=== PATIENT | male | born 1975 | race African-American/Black ===

== ENCOUNTER 2017-06-14 10:33 | Emergency (ER) | payer OTHER ==
[2017-06-14 10:43] VITALS: BP 141/64; PULSE 67; TEMP 98.2; BMI 32.2
[2017-06-14] MEDS ORDERED: ACETAMINOPHEN 1000 MG/100 ML VIAL (NON FORMULARY) IVPB ONE (11:37)
--- NOTE | 2017-06-14 11:44 | PDOC ---
History of Present Illness - General Chief Complaint: Pain Stated Complaint: SINUS PAIN Time Seen by Provider: 06/14/17 11:29 History Source: Patient Exam Limitations: No Limitations - History of Present Illness Initial Comments: 06/14/17 11:39 42 yr male with c/o headache for 5 days getting worse with bilaterally neck pain. Pt denies fever or chills states he is taking Levaquin for sinus infection dx on Sunday pt denies sinus drainage, denies sinus pressure, no sneezing, no ear pain or sore throat. Pt states his 5 yr old at home with ear infection. Pt has history of asthma, well controlled. Past History - Past Medical History Allergies/Adverse Reactions: Allergies Allergy/AdvReac Type Severity Reaction Status Date / Time No Known Drug Allergies Allergy Verified 06/14/17 10:43 Home Medications: Ambulatory Orders Cetirizine HCl 10 mg PO ASDIR 06/14/17 Diazepam [Valium] 5 mg PO Q8H PRN #15 tablet MDD 15mg 06/14/17 Levofloxacin [Levaquin -] 500 mg PO DAILY 06/14/17 Methocarbamol 500 mg PO 06/14/17 Naproxen [Naprosyn -] 500 mg PO BID PRN #14 tablet 06/14/17 Anemia: (questionable high iron level in blood) Asthma: Yes (DX 2011-STABLE NO MEDS) Cancer: No Cardiac Disorders: Yes (tachycardia, no meds) CVA: No COPD: No CHF: No Dementia: No 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) GI Disorders: Yes (GERD) Disorders: No HTN: No Hypercholesterolemia: Yes (DX 2009-NO MEDS) Liver Disease: No Seizures: No Thyroid Disease: No - Surgical History Abdominal Surgery: Yes (HIATIAL HERNIA REPAIR-1998,LIVER BIOPSY) Appendectomy: No Cardiac Surgery: No Cholecystectomy: No Lung Surgery: No Neurologic Surgery: No Orthopedic Surgery: Yes (L SHOULDER ARTHROSCOPY-2009) - Immunization History Immunization Up to Date: Yes - Psycho/Social/Smoking Cessation Hx Anxiety: No Suicidal Ideation: No Smoking History: Never smoked Have you smoked in the past 12 months: No Information on smoking cessation initiated: No Hx Alcohol Use: No Drug/Substance Use Hx: No Substance Use Type: None Hx Substance Use Treatment: No Review of Systems - Review of Systems Able to Perform ROS?: Yes Is the patient limited German proficient: No Constitutional: No: Symptoms Reported HEENTM: Yes: See HPI Musculoskeletal: Yes: Symptoms Reported, Neck Pain Neurological: Yes: Symptoms reported, Headache *Physical Exam - Vital Signs Last Vital Signs Temp Pulse Resp BP Pulse Ox 98.2 F 67 17 141/64 100 06/14/17 10:42 06/14/17 10:42 06/14/17 10:42 06/14/17 10:42 06/14/17 10:42 - Physical Exam General Appearance: Yes: Nourished, Appropriately Dressed HEENT: positive: EOMI, SCOTT. negative: Nasal Congestion, Sinus Tenderness Neck: positive: Supple, Tender lateral. negative: Lymphadenopathy (R), Lymphadenopathy (L), Rigidity, Tender midline Respiratory/Chest: positive: Lungs Clear, Normal Breath Sounds Cardiovascular: positive: Regular Rhythm, Regular Rate Musculoskeletal: positive: Normal Inspection Extremity: positive: Normal Capillary Refill, Normal Inspection, Normal Range of Motion Integumentary: positive: Normal Color, Dry, Warm Neurologic: positive: software team leader II-XII NML intact, Fully Oriented, Alert, Normal Mood/ Affect, Normal Response ED Treatment Course - LABORATORY CBC & Chemistry Diagram: 06/14/17 11:50 06/14/17 11:50 - RADIOLOGY Radiology Studies Ordered: Category Date Time Status HEAD CT WITHOUT CONTRAST [CT] Stat CT Scan 06/14/17 11:[address] W/O CONTRAST [CT] Stat CT Scan 06/14/17 11:36 Ordered Medical Decision Making - Medical Decision Making 06/14/17 11:47 cc: headache for 5 days no vision change no photophobia pain to lateral neck worse with movement and to touch pt denies fever or chills, taking Levaquin day 3 for sinus infection pt states he has no sinus drainage or tenderness, will get head and sinus CT check labs IVF 06/14/17 15:06 pt feels much better after meds will dc home on valium and naprosyn dc inst explained, pt is satisfied with the care and all questions asked and answered *DC/Admit/Observation/Transfer Diagnosis at time of Disposition: Muscle spasm - Discharge Dispostion Disposition: HOME Condition at time of disposition: Good - Prescriptions Prescriptions: Naproxen [Naprosyn -] 500 mg PO BID PRN #14 tablet PRN Reason: pain Diazepam [Valium] 5 mg PO Q8H PRN #15 tablet MDD 15mg PRN Reason: Muscle Spasms - Referrals Referrals: Carole Crowell MD [Primary Care Provider] - Wilian Granados MD [Staff Physician] - - Patient Instructions Additional Instructions: STOP taking levaquin and Robaxin (muscle relaxant) start taking valium (do not drive, operate machinery or drink alcohol) take with naprosyn for pain and inflamation apply heating pad, warm compresses to the area of pain, back of your neck follow with the orthopedist if symptoms worsen or persist - Post Discharge Activity Work/School Note: Back to Work
[2017-06-14] MEDS ORDERED: ONDANSETRON 4 MG/2 ML VIAL IVPB ONE (11:47)
[2017-06-14] MEDS ORDERED: SODIUM CHLORIDE 0.9% 500 ML INFUS.BAG IV ONE (11:48)
[2017-06-14 11:57] LABS: EOSINOPHIL 0.8 % (0-4.5); MCH 25.5 pg (25.7-33.7); MCHC 31.8 g/dl (32.0-35.9); MEAN CELL VOLUME 80.3 fl (80-96); PLATELET COUNT 274 K/MM3 (134-434); RDW 15.1 % (11.9-15.9); WHITE BLOOD COUNT 7.3 K/mm3 (4.0-10.0)
[2017-06-14] MEDS ORDERED: ACETAMINOPHEN INJECTION 100 ML IVPB ONE (12:01)
[2017-06-14] MEDS ORDERED: ONDANSETRON 4 MG/2 ML VIAL ONE ×2 (12:01→12:07)
[2017-06-14 12:24] LABS: ALBUMIN 4.1 g/dl (3.4-5.0); ALK PHOS 62 U/L (45-117); ANION GAP 6 (8-16); BILIRUBIN,TOTAL 0.5 mg/dL (0.2-1.0); CALCIUM 9.2 mg/dL (8.5-10.1); CO2 31 mmol/L (21-32); CREATININE 1.3 mg/dL (0.7-1.3); GLUCOSE,RANDOM 100 mg/dL (74-106); SGPT/ALT 85 U/L (12-78); TOT PROT 7.5 g/dl (6.4-8.2)
[2017-06-14 12:26] LABS: SGOT/AST 34 U/L (15-37)
== END 2017-06-14 14:28 | disposition home or self-care (01) ==
LOC: JERFT 10:33
PROC: 3E033NZ Introduction of Analgesics, Hypnotics, Sedatives into Peripheral Vein, Percutaneous Approach (ICD-10-PCS; principal; 2017-06-14)
PROC: 3E033GC Introduction of Other Therapeutic Substance into Peripheral Vein, Percutaneous Approach (ICD-10-PCS; 2017-06-14)
PROC: 3E0337Z Introduction of Electrolytic and Water Balance Substance into Peripheral Vein, Percutaneous Approach (ICD-10-PCS; 2017-06-14)
DX: M62.838 Other muscle spasm (principal); J45.909 Unspecified asthma, uncomplicated; K21.9 Gastro-esophageal reflux disease without esophagitis; E78.00 Pure hypercholesterolemia, unspecified
CPT/HCPCS: 36415; 70450-TC; 70486-TC; 80053; 85025; 99281-25

== ENCOUNTER 2020-10-22 10:15 | Day surgery (SDC) | payer OTHER ==
[2020-10-20 13:07] VITALS: BMI 34.2
[2020-10-22] MEDS ORDERED: PROPOFOL 20 ML ONE ×3 (11:53)
[2020-10-22] MEDS ORDERED: LIDOCAINE HCL/PF 2% SDV 5ML VIAL ONE (11:55)
[2020-10-22 13:27] VITALS: TEMP 98
[2020-10-22 13:35] VITALS: BP 130/78; PULSE 66
== END 2020-10-22 13:35 | disposition home or self-care (01) ==
LOC: FASU-ENDO 10:15
PROVIDERS: ATTEND Internal Medicine Gastroenterology
PROC: 0DB68ZX Excision of Stomach, Via Natural or Artificial Opening Endoscopic, Diagnostic (ICD-10-PCS; 2020-10-22)
PROC: 0DB48ZX Excision of Esophagogastric Junction, Via Natural or Artificial Opening Endoscopic, Diagnostic (ICD-10-PCS; 2020-10-22)
PROC: 0DB98ZX Excision of Duodenum, Via Natural or Artificial Opening Endoscopic, Diagnostic (ICD-10-PCS; principal; 2020-10-22 12:03)
DX: R10.13 Epigastric pain (principal)
CPT/HCPCS: 88305-TC; 88342-TC

== ENCOUNTER 2020-11-23 07:37 | Day surgery (SDC) | payer OTHER ==
[2020-11-18 11:25] VITALS: BMI 34.2
[2020-11-23 08:21] VITALS: TEMP 98.3
[2020-11-23] MEDS ORDERED: PROPOFOL 20 ML ONE ×4 (09:13)
[2020-11-23] MEDS ORDERED: LIDOCAINE HCL/PF 2% SDV 5ML VIAL ONE (09:15)
[2020-11-23 10:28] VITALS: BP 110/61; PULSE 77
== END 2020-11-23 10:30 | disposition home or self-care (01) ==
LOC: FASU-ENDO 07:37
PROVIDERS: ATTEND Internal Medicine Gastroenterology
PROC: 0DJD8ZZ Inspection of Lower Intestinal Tract, Via Natural or Artificial Opening Endoscopic (ICD-10-PCS; principal; 2020-11-23 09:32)
DX: Z12.11 Encounter for screening for malignant neoplasm of colon (principal); K64.8 Other hemorrhoids
CPT/HCPCS: 82962

== ENCOUNTER 2021-05-13 13:50 | Emergency (ER) | payer OTHER ==
[2021-05-13 14:25] VITALS: BMI 33.9
[2021-05-13 17:07] LABS: BASO % 0.9 % (0-2.0); EOS % 1.3 % (0-4.5); HEMATOCRIT 46.3 % (35.4-49); LYMPH % 46.5 % (8-40); MCH 25.6 pg (25.7-33.7); MCHC 32.4 g/dl (32.0-35.9); MEAN CELL VOLUME 79.2 fl (80-96); MEAN PLT VOLUME 7.8 fl (7.5-11.1); MONO % 9.6 % (3.8-10.2); NEUT % 41.7 % (42.8-82.8); PLATELET COUNT 280 10^3/uL (134-434); RBC 5.84 M/mm3 (4.00-5.60); RDW 15.1 % (11.9-15.9); WHITE BLOOD COUNT 7.3 K/mm3 (4.0-10.0)
[2021-05-13 17:07] LABS: PH,URINE 5.5 (5.0-8.0); URINE APPEARANCE CLEAR; URINE BILIRUBIN NEGATIVE (NEGATIVE); URINE COLOR YELLOW; URINE GLUCOSE (UA) NEGATIVE (NEGATIVE); URINE KETONE NEGATIVE (NEGATIVE); URINE LEUK ESTERASE NEGATIVE (NEGATIVE); URINE NITRITE NEGATIVE (NEGATIVE); URINE PROTEIN NEGATIVE (NEGATIVE); URINE UROBILINOGEN 0.2 mg/dL (0.2-1.0)
[2021-05-13 17:26] LABS: CALCIUM 8.6 mg/dL (8.5-10.1)
[2021-05-13 17:27] LABS: BLOOD UREA NITROGEN 12.5 mg/dL (7-18)
[2021-05-13 17:30] LABS: CREATININE 1.4 mg/dL (0.55-1.3)
[2021-05-13 17:31] LABS: BILIRUBIN,TOTAL 0.4 mg/dL (0.2-1); TOT PROT 7.2 g/dl (6.4-8.2)
[2021-05-13 18:38] VITALS: TEMP 98.6
[2021-05-13 19:54] VITALS: BP 158/94; PULSE 63
== END 2021-05-13 20:05 | disposition home or self-care (01) ==
LOC: JER 13:50
DX: R10.2 Pelvic and perineal pain (principal)
CPT/HCPCS: 36415; 74176-TC; 80053; 81003; 85025; 87086; 99284-25

== ENCOUNTER 2024-06-17 22:07 | Emergency (ER) | payer OTHER ==
[2024-06-17 22:28] VITALS: BP 141/101; PULSE 59; RESP 18; TEMP 98.2; BMI 34.4
== END 2024-06-17 23:24 | disposition home or self-care (01) ==
LOC: FER 22:07
DX: M54.6 Pain in thoracic spine (principal); R22.2 Localized swelling, mass and lump, trunk; M54.2 Cervicalgia; M25.511 Pain in right shoulder; R68.84 Jaw pain
CPT/HCPCS: 93005; 99283-25